=== PATIENT | female | born 1985 | race Caucasian/White ===

== ENCOUNTER 2018-06-17 06:26 | Emergency (ER) | payer MEDICAID ==
[~2018-06-17] VITALS: Ht 157.5 cm; Wt 52.2 kg
--- NOTE | 2018-06-17 06:46 | NUR ---
LAZ PINEDA at bedside for patient evaluation.
--- NOTE | 2018-06-17 07:07 | NUR ---
Patient discharged to home in stable conditon. Written and verbal after care instructions given. Patient verbalizes understanding of instructions. Ambulated from ER with stable gait.
[2018-06-17 07:08] VITALS: BP 131/78
== END 2018-06-17 07:09 | disposition home or self-care (01) ==
LOC: ER 06:29
DX: F41.9 Anxiety disorder, unspecified (principal); Z76.0 Encounter for issue of repeat prescription
CPT/HCPCS: A4663